=== PATIENT | female | born 1990 | race Caucasian/White ===

== ENCOUNTER 2020-06-23 18:23 | Observation (INO) | payer OTHER, SELFPAY ==
[2020-06-23] VITALS (33 sets, daily range): BP systolic 105–131; BP diastolic 56–75; PULSE 92–136; RESP 18; TEMP 36.6–36.8; O2SAT 98–100; BMI 27.7
--- NOTE | 2020-06-23 18:48 | OBADM ---
This patient, Elida Hamlin, admitted to the OB room [facility] for observation. Patient/family oriented to hospital policies and general routines including ID bracelet, bed and alarms, visiting hours, pain management, procedures, bathroom and other care routines, personal items, smoking policy, room service/diet, and visiting hours. Patient/Family are encouraged to report perceived risks to care and to ask questions if they do not understand what they are told or what they should do.
[2020-06-23] MEDS: TERBUTALINE SULFATE 1 MG/ML VIAL 0.25 MG SUB-Q (19:22)
[2020-06-23 19:49] LABS: Fetal Fibronectin Positive
[2020-06-23] MEDS: BETAMETHASONE SOD PHOS/ACETATE 30 MG/5 ML VIAL 12 MG IM (19:49)
[2020-06-23] MEDS: LACTATED RINGERS 1,000 ML 75 ML IV CONT (19:51)
[2020-06-23] MEDS: MAGNESIUM SULF 4 GM/WATER100ML 4 GM/100 ML BAG IVPB (19:52)
[2020-06-23] MEDS: AMPICILLIN 2 GM/NS 100 ML 2 GM/100 ML BAG IVPB (19:52)
[2020-06-23 19:59] LABS: Basophils Percent Auto 0.2 % (0.2-1.2); Eosinophils Absolute Auto 0.1 K/mm3 (0-0.3); Eosinophils Percent Auto 0.5 % (0-4.4); Hematocrit 31.3 % (37.0-47.0); Hemoglobin 9.8 g/dL (12.0-15.0); Immature Granulocyte Absolute 0.13 K/mm3 (0.00-0.031); Immature Granulocyte Percent A 1.2 % (0-0.5); Lymphocytes Absolute Auto 2.65 K/mm3 (0.9-3.2); Lymphocytes Percent Auto 24.3 % (18.3-44.2); Mean Corpuscular HGB Conc 31.3 g/dl (32-36); Mean Corpuscular Hemoglobin 27.4 pg (26-34); Mean Corpuscular Volume 87.4 fl (80-100); Mean Platelet Volume 10.2 fl (7.4-10.4); Monocytes Absolute Auto 0.8 K/mm3 (0.1-0.6); Monocytes Percent Auto 6.9 % (2.6-8.5); Neutrophils Absolute Auto 7.3 K/mm3 (1.3-6.7); Neutrophils Percent Auto 66.9 % (45.5-73.1); Platelet Count Result 328 k/mm3 (150-375); Red Blood Count 3.58 M/mm3 (4.2-5.4); Red Cell Distribution Width 17.4 % (11.5-14.5); White Blood Count 10.9 K/mm3 (4.5-10.0)
[2020-06-23 20:11] LABS: Alanine Aminotransferase 16 U/L (4-35); Albumin Level 3.4 g/dL (3.5-5.1); Alkaline Phosphatase 84 U/L (38-126); Anion Gap 6 mmol/L (8-16); Aspartate Amino Transferase 29 U/L (14-36); Bilirubin,Total < 0.1 mg/dL (0.2-1.3); Blood Urea Nitrogen 7 mg/dL (7-17); Calcium 8.8 mg/dL (8.4-10.2); Carbon Dioxide 23 mmol/L (22-30); Chloride 106 mmol/L (98-107); Estimated CRCL calculation 124 ml/min; Estimated Glomerular Filt Rate > 60; Glucose 92 mg/dL (65-105); Potassium 3.2 mmol/L (3.4-5.0); Sodium 135 mmol/L (137-145)
[2020-06-23] MEDS: MAGNESIUM SULF 20GM/WATER500ML 500 ML 50 MG IV CONT (20:29)
[2020-06-24] VITALS: BP 102/49; PULSE 101
[2020-06-24 00:01] VITALS: BP 102/49; PULSE 97; PULSE 99; RESP 18; TEMP 36.2; O2SAT 99
[2020-06-24] MEDS: AMPICILLIN 1 GM/NS 50 ML 1 GM/50 ML BAG IVPB ×2 (03:49)
--- NOTE | 2020-06-24 03:50 | PC.NURSE ---
Dr. Vivar at bedside to exam pt. SVE done. Assessment done.
[2020-06-24 04:01] VITALS: PULSE 96; RESP 18; TEMP 36.2; O2SAT 99
[2020-06-24 04:03] VITALS: BP 126/61; PULSE 93
--- NOTE | 2020-06-24 04:36 | PM.IMHP ---
H&P: HPI History of Present Illness Date/Time: 06/24/20 04:36 30 y/o at 30 2/7 weeks with di/di twins, here with contractions. No leakage of fluid or bleeding. Good movement. Chief Complaint: Contractions Review of Systems Review of Systems: All systems reviewed & are unremarkable except as noted in HPI and below PMFSH Social History Social History Smoking status: Former smoker Substance use: never Gender identity (if verbalized by the patient): Female Spiritual care concerns: No Meds Home Medications and Allergies Home Medications Medication Instructions Recorded Confirmed Type PNV cmb#95-ferrous fumarate-FA 1 tablet PO DAILY 02/14/19 06/23/20 History [] cholecalciferol (vitamin D3) 1,000 unit PO DAILY 02/14/19 06/23/20 History [Vitamin D3] Allergies Allergy/AdvReac Type Severity Reaction Status Date / Time Sulfa (Sulfonamide Allergy Unknown Verified 08/10/17 12:32 Antibiotics) Vital Signs Vital Signs - 24 hr 06/23/20 18:54 06/23/20 19:00 06/23/20 19:21 Temperature 36.6 C Pulse Rate 92 96 Respiratory Rate Blood Pressure 105/64 114/67 Pulse Oximetry 98 06/23/20 19:26 06/23/20 19:30 06/23/20 19:31 Temperature Pulse Rate 110 H Respiratory Rate Blood Pressure 131/75 Pulse Oximetry 99 100 06/23/20 19:36 06/23/20 19:41 06/23/20 19:46 Temperature Pulse Rate Respiratory Rate Blood Pressure Pulse Oximetry 99 100 100 06/23/20 19:51 06/23/20 19:52 06/23/20 19:56 Temperature 36.8 C Pulse Rate 111 H Respiratory Rate 18 Blood Pressure 126/67 Pulse Oximetry 100 99 99 06/23/20 20:00 06/23/20 20:01 06/23/20 20:11 Temperature Pulse Rate 114 H Respiratory Rate Blood Pressure 126/67 Pulse Oximetry 99 99 06/23/20 20:16 06/23/20 20:17 06/23/20 20:22 Temperature Pulse Rate Respiratory Rate Blood Pressure Pulse Oximetry 100 100 100 06/23/20 20:27 06/23/20 20:32 06/23/20 20:37 Temperature Pulse Rate Respiratory Rate Blood Pressure Pulse Oximetry 100 100 100 06/23/20 20:42 06/23/20 20:47 06/23/20 20:52 Temperature Pulse Rate Respiratory Rate Blood Pressure Pulse Oximetry 100 100 100 06/23/20 20:57 06/23/20 21:00 06/23/20 21:02 Temperature Pulse Rate 107 H Respiratory Rate Blood Pressure 114/62 Pulse Oximetry 100 100 06/23/20 21:07 06/23/20 21:12 06/23/20 21:17 Temperature Pulse Rate Respiratory Rate Blood Pressure Pulse Oximetry 100 100 100 06/23/20 22:01 06/23/20 23:00 06/23/20 23:56 Temperature Pulse Rate 105 H 104 H Respiratory Rate Blood Pressure 110/56 L 106/65 Pulse Oximetry 98 06/24/20 00:00 06/24/20 00:01 06/24/20 04:01 Temperature 36.2 C L 36.2 C L Pulse Rate 101 H 97 96 Respiratory Rate 18 18 Blood Pressure 102/49 L 102/49 L Pulse Oximetry 99 99 06/24/20 04:03 Temperature Pulse Rate 93 Respiratory Rate Blood Pressure 126/61 Pulse Oximetry Exam Const: Orientation/consciousness: patient oriented x3 Other: Well-developed, well-nourished female in no acute distress. Neck: Thyroid: thyroid normal Lymphatic: no lymphadenopathy noted (in neck, axilla or inguinal nodes) Resp: Effort & Inspection: normal respiratory effort Auscultation: clear to auscultation bilaterally Cardio: Rate: regular rate Rhythm: regular rhythm Heart sounds: S1 normal heart sound present and S2 normal heart sound present GI: Other: ABD: Soft, nontender, gravid. NST good variability x 2. TOCO: contractions every 2-3 min initially, now rare contractions. No hepatosplenomegaly. : General: Yes no CVA tenderness Other: Cervix 5/50/-2, vertex Back/Spine/Pelvis: Back: no CVA tenderness Skin: General skin exam: normal color and no rashes or lesions noted Neuro: General: patient oriented x3 Extrem: Other
--- NOTE | 2020-06-24 04:40 | PC.NURSE ---
gave report to Tamia ALDRICH from [facility]. will be on way for transport
--- NOTE | 2020-06-24 05:41 | PC.NURSE ---
transport team here. report to ca tejada
== END 2020-06-24 05:53 | disposition short-term general hospital (02) ==
LOC: ANHOBPP 18:30
PROVIDERS: Admitting Provider Obstetrics & Gynecology; Visit Provider Obstetrics & Gynecology
DX: O60.03 Preterm labor without delivery, third trimester (principal); O30.043 Twin pregnancy, dichorionic/diamniotic, third trimester; Z3A.30 30 weeks gestation of pregnancy
CPT/HCPCS: 36415; 80053; 82731; 85025; 96365; 96366; 96368; 96372; G0378; G0379; J0290; J0702; J3105; J3475; J7120

== ENCOUNTER 2023-10-04 10:43 | Emergency (ER) | payer BC, SELFPAY ==
[2023-10-04 10:54] VITALS: BP 105/67; PULSE 83; RESP 16; TEMP 36.5; O2SAT 100
--- NOTE | 2023-10-04 11:45 | ED.GENADULT ---
HPI - General Adult General Chief complaint: Skin/Abscess/Foreign Body Stated complaint: Poison Megan Source: patient Mode of arrival: ambulatory Limitations: no limitations History of Present Illness HPI narrative: Patient presents for evaluation of a pruritic rash to the face, neck, bilateral upper extremities for the last 4 days. She was exposed to poison megan when feeding her horses. She has experienced similar symptoms in the past when exposed to poison megan. She has been using nnth-rwq-occypdl topical product to assist with her itching with persistence of her symptoms thereafter. She denies any difficulty breathing or swallowing. Related Data Home Medications Medication Instructions Recorded Confirmed cholecalciferol (vitamin D3) 25 1,000 unit PO DAILY 02/14/19 06/23/20 mcg (1,000 unit) capsule (Vitamin D3) vit no.95-ferrous 1 tablet PO DAILY 02/14/19 06/23/20 fumarate 28 mg-folic acid 800 mcg tablet () Allergies Allergy/AdvReac Type Severity Reaction Status Date / Time Sulfa (Sulfonamide Allergy Unknown Verified 08/10/17 12:32 Antibiotics) Review of Systems Review of Systems: CONSTITUTIONAL: Denies fever, chills, or sweats. EYES: Denies visual changes, redness, or discharge. ENT: Denies rhinorrhea, congestion, sore throat, or otalgia. CARDIOVASCULAR: Denies chest pain, palpitations, or edema. RESPIRATORY: Denies cough or dyspnea. GASTROINTESTINAL: Denies abdominal pain, nausea, vomiting, or diarrhea. GENITOURINARY: Denies dysuria or hematuria. SKIN: Reports pruritic rash to the face, neck, and bilateral upper extremities MUSCULOSKELETAL: Denies back pain, joint pain, or myalgia. NEUROLOGIC: Denies headache, numbness, dizziness, or weakness. PSYCHIATRIC: Denies anxiety or depression. [facility], [facility] Past Medical History Medical History Vitamin D deficiency Surgical History Surgical History No pertinent past surgical history Family History Family History Mother Family history non-contributory Social History Social History Smoking status: Former smoker Substance use: never Living arrangements: with family Gender identity (if verbalized by the patient): Female Spiritual care concerns: No Exam Narrative: GENERAL: Well-appearing, well-nourished, and in no acute distress. HEAD: Normocephalic, atraumatic. EYES: PERRLA and EOMI. ENT: Nares clear, no rhinorrhea or epistaxis. Mucous membranes moist. Oropharynx without tonsillar hypertrophy exudate or other lesions. Bilateral TMs pearly brown nonbulging NECK: Supple. No adenopathy or masses. No carotid bruits or JVD CHEST: Clear to auscultation. No respiratory distress. No wheezes rales or rhonchi HEART: Regular rate and rhythm. No murmur heard. Normal peripheral pulses. ABDOMEN: Soft, nontender, nondistended, normal active bowel sounds. EXTREMITIES: Normal range of motion. No edema. SKIN: there are scattered macules and raised vesicular erythematous lesions to the forehead, right side of the neck in bilateral upper extremities NEURO: No focal deficits. Alert and oriented x3. PSYCH: Normal mood and affect. Course Course Emergency Course: This is a 33-year-old female who presented for evaluation of dermatitis secondary to poison megan exposure. Will treat with prednisone. Benadryl for itching. Advised on skin care measures. Follow up primary provider. Go to the ER for worsening symptoms. Patient in agreement with plan care. Level of Care: Express Care Visit Vital Signs Vital signs: Vital Signs Temperature 36.5 C 10/04/23 10:54 Pulse Rate 83 10/04/23 10:54 Respiratory Rate 16 10/04/23 10:54 Blood Pressure 105/67 10/04/23 10:54 Pulse Oximetry
== END 2023-10-04 11:52 | disposition home or self-care (01) ==
PROVIDERS: Emergency Provider Nurse Practitioner; PCP Internal Medicine
DX: L23.7 Allergic contact dermatitis due to plants, except food (principal); Z87.891 Personal history of nicotine dependence; E55.9 Vitamin D deficiency, unspecified
CPT/HCPCS: 99203; G0463

== ENCOUNTER 2024-01-27 12:28 | Emergency (ER) | payer BC, SELFPAY ==
[2024-01-27 12:40] VITALS: BP 100/74; PULSE 81; RESP 16; TEMP 36.6; O2SAT 100
--- NOTE | 2024-01-27 13:00 | ED_ITS ---
HPI - URI/Sore Throat General Chief Complaint: Upper Respiratory Infection Stated Complaint: Sinus congestion Time Seen by Provider: 01/27/24 13:00 Source: patient Mode of arrival: ambulatory Limitations: no limitations History of Present Illness HPI Narrative: 33-year-old female presents with complaint of nasal and sinus congestion, Postnasal drainage, sinus pressure, sinus headaches, intermittent sore throat fo r the past 10 days. Patient taking ibuprofen to treat pain. Not taking any emnd-nhi-zsmqtue sinus medications to treat symptoms. All systems reviewed and negative except as noted above. Related Data Home Medications Medication Instructions Recorded Confirmed cholecalciferol (vitamin D3) 25 1,000 unit PO DAILY 02/14/19 01/27/24 mcg (1,000 unit) capsule (Vitamin D3) progesterone micronized 100 mg 100 mg PO DAILY 01/27/24 01/27/24 capsule Allergies Allergy/AdvReac Type Severity Reaction Status Date / Time Sulfa (Sulfonamide Allergy Unknown Unknown Verified 01/27/24 12:57 Antibiotics) Review of Systems Review of Systems: CONSTITUTIONAL: Denies fever, chills, or sweats. EYES: Denies visual changes, redness, or discharge. ENT: Reports rhinorrhea, congestion, sore throat,, postnasal drainage, sinus pressure. Denies otalgia. CARDIOVASCULAR: Denies chest pain, palpitations, or edema. RESPIRATORY: Denies cough or dyspnea. GASTROINTESTINAL: Denies abdominal pain, nausea, vomiting, or diarrhea. GENITOURINARY: Denies dysuria or hematuria. SKIN: Denies rash or itching. MUSCULOSKELETAL: Denies back pain, joint pain, or myalgia. NEUROLOGIC: Denies headache, numbness, or weakness. PSYCHIATRIC: Denies anxiety or depression. All other systems reviewed are negative, except as documented in HPI. [facility] Past Medical History Medical History Vitamin D deficiency Surgical History Surgical History No pertinent past surgical history Family History Family History Mother Family history non-contributory Social History Social History Smoking status: Former smoker Substance use: never Living arrangements: with family Gender identity (if verbalized by the patient): Female Spiritual care concerns: No Comments At time of signature, agree with nursing past medical, surgical, social and family history. There is no relevant family history pertinent to the presenting complaint. Exam Narrative: GENERAL: This is a well-nourished, well-developed patient, in no apparent distress. HEAD: normocephalic, atraumatic. EYES: PERRL. Sclera clear/white. Vision is grossly intact. EARS: External ears normal, auditory canals clear and without drainage, TMs normal without perforation. Hearing grossly intact. NOSE: External nose normal with mild congestion, postnasal drainage, mild erythema, maxillary sinus tenderness on palpation THROAT: Mucous membranes moist, posterior pharynx clear. NECK: Neck supple, non-tender without lymphadenopathy, masses or thyromegaly. CARDIOVASCULAR: Regular rate and rhythm without murmurs, gallops, or rubs. RESPIRATORY: Clear to auscultation. Breath sounds equal bilaterally. No wheezes, rales, or rhonchi. SKIN: warm, Dry, intact with no suspicious lesions or rash, good texture and turgor. NEURO: awake, alert, and oriented to person, place and time. There were no obvious focal neurologic abnormalities. EXTREMITIES: No joint tenderness, effusion, or edema noted. Course Course Level of Care: Express Care Visit Vital Signs Vital signs: Vital Signs Temperature 36.6 C 01/27/24 12:40 Pulse Rate 81 01/27/24 12:40 Respiratory Rate 16 01/27/24 12:40 Blood Pressure 100/74 01/27/24 12:40 Pulse Oximetry 100 01/27/24 12:40 Temperature 36.6 C 01/27/24 12:40 Pulse Rate 81 01/27/24 12:40 Respiratory Rate 16 01/27/24 12:40 Blood Pressure 100/74 01/27/24 12:40 Pulse Oximetry 100 01/27/24 12:40 Reviewed MDM - URI/Sore Throat MDM Narrative Medical decision making narrative: Will treat patient for bacterial sinusitis due to exam findings and duration of symptoms. Patient is aware of diagnosis, understands and agrees to treatment plan. Anticipatory guidance given. Patient agrees to follow-up as directed and is aware of reasons to seek care at the emergency department. Portions of this record may have been created with voice recognition software Differential Diagnosis Differential diagnosis: Likely sinusitis Discharge Plan Discharge Clinical Impression: Acute bacterial sinusitis Patient Disposition: Home, Self-Care Condition: Stable Instructions: Antibiotic Form, Sinusitis (ED) Additional Instructions: Take antibiotic as prescribed until gone. Taking exgw-cxl-[id number] antihistamine such as Claritin or Zyrtec. Using nasal spray daily such as Flonase or Nasacort. Continue to take ibuprofen or Tylenol every 6-8 hours as needed for pain. Drink at least 64 oz of water a day. Follow-up with your primary care physician if symptoms are not improving. Prescriptions: New amoxicillin 875 mg tablet 875 mg PO Q12H 10 Days Qty: 20 0RF No Action progesterone micronized 100 mg capsule 100 mg PO DAILY cholecalciferol (vitamin D3) [Vitamin D3] 1,000 unit Capsule 1,000 unit PO DAILY Follow-up/Referrals: Vandana,MD Suhail [Primary Care Provider] - Time of Disposition: 13:06
== END 2024-01-27 13:10 | disposition home or self-care (01) ==
PROVIDERS: Emergency Provider Nurse Practitioner Family; PCP Internal Medicine
DX: J01.90 Acute sinusitis, unspecified (principal); E55.9 Vitamin D deficiency, unspecified
CPT/HCPCS: 99213; G0463

== ENCOUNTER 2024-09-13 15:55 | Outpatient (CLI) | payer BC, SELFPAY ==
--- NOTE | ~2024-09-13 | MR_ITS ---
MRI of the right wrist Technique: Coronal T1 weighted and proton density fat sat images, and axial and sagittal proton-densi ty and proton-density fat-sat images were acquired. Following intravenous administration of 10 cc Mul tiHance gadolinium, T1-weighted fat-sat imaging was performed in the axial, coronal, and sagittal nadira racheal. Clinical History: Volar mass Findings: Scapholunate ligament is intact, and there is no widening of the scapholunate interval. Mariel otriquetral ligament intact. TFCC appears intact. Bone marrow signals are unremarkable. No fracture or bone marrow edema. Joint spaces are intact. Ther e is a 1.5 x 0.9 x 0.7 cm ganglion cyst with a few internal septations at the volar aspect of the dis ignacia radius at the radial aspect, connected by thin neck of fluid which appears to extend from the rad ial scaphoid articulation. No associated postcontrast enhancement lesion, which is compatible with a ganglion cyst. No other soft tissue mass or fluid collection seen. Visualized musculature unremarkable. Visualized flexor and extensor tendons are intact. IMPRESSION: 1.5 x 0.9 x 0.7 cm ganglion cyst along the radial, volar aspect of the radial scaphoid articulation, connected by a thin neck of fluid extending from the radial scaphoid joint. Reviewed, dictated and finalized at location M. IMPRESSION: 1.5 x 0.9 x 0.7 cm ganglion cyst along the radial, volar aspect of the radial s caphoid articulation, connected by a thin neck of fluid extending from the radi al scaphoid joint.
== END 2024-09-13 15:56 | disposition home or self-care (01) ==
LOC: MICIMG 15:59
PROVIDERS: PCP Internal Medicine; Visit Provider Plastic Surgery
DX: M67.431 Ganglion, right wrist (principal)
CPT/HCPCS: 73223; A9577

== ENCOUNTER 2024-09-28 00:21 | Day surgery (SDC) | payer BC, SELFPAY ==
[2024-09-26 09:47] VITALS: BMI 19.3
--- NOTE | 2024-09-26 09:48 | PC.NURSE ---
Report to the Outpatient Waiting Room, entrance under the green pavilion located off [facility], at time _1045_ on date _[id number]_. Planned Procedure Time: _1245_.? Time changes happen often and if your time is changed the preop area will call you the afternoon before. - You and your visitor will be asked to self-screen and do not enter if you have any COVID symptoms. Please call surgeon if you need to reschedule. - A mask is optional within the hospital at this time. Patients may have clear liquids (water, carbonated beverages, clear teas, apple juice) until 3 hours prior to surgery with a maximum of 20 ounces. - No food from midnight until time of surgery and no smoking, or chewing tobacco (or any form of nicotine). No chewing gum, candy or mints. Take only the following medications with a SIP of water on the morning of surgery: ___None____ DO NOT STOP ANY OF YOUR OTHER PRESCRIPTION MEDICATIONS PRIOR TO SURGERY EXCEPT THE FOLLOWING Hold all vitamins and supplements for 3 days per anesthesiologist. Stop now. Medications to discontinue per physician Date to take last dose Please no make-up, nail sudanese, hairspray, perfume, deodorant, or body powder the day of surgery.? No jewelry (including any body piercings) or valuables the day of surgery, leave them at home.? Please take a shower or bath the night before, or the morning of, surgery with an antibacterial soap.? Wear comfortable, loose fitting clothing.? - Jewelry must be removed prior to entering the operating room.? Rings and piercings that are not removed may be cut off. - The hospital will not accept responsibility for valuables.? - Please leave all valuables, including medications, at home the day of surgery. If you are going home after surgery, a licensed wheelchair van driver must drive you home.? - NO public transportation without another adult if you receive anesthesia. - We recommend that an adult stay with you for 24 hours following discharge. - We also recommend that you do not drive, make important decision, drink alcoholic beverages, or take any drugs that were not prescribed by your health care provider for at least 24 hours after your discharge time. Follow any additional instructions given to you from your surgeon. Telephone instructions given to __Elida___and asked if any additional questions and then verbalized understanding. Patient advised to call surgeon office or pre surgery nurse liaison [phone] if any additional questions.
--- NOTE | 2024-09-26 09:54 | PC.NURSE ---
Report to the Outpatient Waiting Room, entrance under the green pavilion located off [facility], at time _1045_ on date _[id number]_. Planned Procedure Time: _1245_.? Time changes happen often and if your time is changed the preop area will call you the afternoon before. - You and your visitor will be asked to self-screen and do not enter if you have any COVID symptoms. Please call surgeon if you need to reschedule. - A mask is optional within the hospital at this time. May have clear liquids (water, carbonated beverages, clear teas, apple juice) until 445am with a maximum of 20 ounces. Nothing to drink after 445am. - No food from midnight until time of surgery and no smoking, or chewing tobacco (or any form of nicotine). No chewing gum, candy or mints. Take only the following medications with a SIP of water on the morning of surgery: ____None___ DO NOT STOP ANY OF YOUR OTHER PRESCRIPTION MEDICATIONS PRIOR TO SURGERY EXCEPT THE FOLLOWING Hold all vitamins and supplements for 3 days per anesthesiologist. Stop now. Medications to discontinue per physician Date to take last dose Please no make-up, nail portuguese, hairspray, perfume, deodorant, or body powder the day of surgery.? No jewelry (including any body piercings) or valuables the day of surgery, leave them at home.? Please take a shower or bath the night before, or the morning of, surgery with an antibacterial soap.? Wear comfortable, loose fitting clothing.? - Jewelry must be removed prior to entering the operating room.? Rings and piercings that are not removed may be cut off. - The hospital will not accept responsibility for valuables.? - Please leave all valuables, including medications, at home the day of surgery. If you are going home after surgery, a licensed milk driver must drive you home.? - NO public transportation without another adult if you receive anesthesia. - We recommend that an adult stay with you for 24 hours following discharge. - We also recommend that you do not drive, make important decision, drink alcoholic beverages, or take any drugs that were not prescribed by your health care provider for at least 24 hours after your discharge time. Follow any additional instructions given to you from your surgeon. Telephone instructions given to __Elida___and asked if any additional questions and then verbalized understanding. Patient advised to call surgeon office or pre surgery nurse liaison [phone] if any additional questions.
--- OUTSIDE RECORDS SUMMARY | 2024-09-28 00:24 | XMS_ITS | Encounter Summary ---
Author Organization [facility] Address [address] [place] [address] Care Team Providers Care Crtts Name Role Phone Suhail Ross MD Primary Care Provider [phone] Encounter Details Date Type Department Care Team (Latest Contact Info) Description 02/10/2023 [email or web address] Message Enc [facility] Multispecialty Care - [address] [address] [address] [place], [place] [id number] Suhail Ross MD [address] [place] [address] [address] [place] [address] June 2022 Pap results Social History Tobacco Use Types Packs/Day Years Used Date Smoking Tobacco: Former Cigarettes 0.5 5 0 11/29/2007 - 11/28/2012 Passive Smoke Exposure: Never Smokeless Tobacco: Never Comments:Counseled by Dr Abbi alvarez Alcohol Use Standard Drinks/Week Comments Yes 5 (1 standard drink = 0.6 oz pur e alcohol) PHQ-2 Answer Date Recorded Patient Health Questionnaire-2 Score 0 02/10/2023 Comments No Sex and Gender Information Value Date Recorded Sex Assigned at Not on file Legal Sex Female 12:45 PM CDT Gender Identity Not on file Sexual Orientation Not on file documented as of this encounter Functional Status * Over the past 2 weeks, how often have you been bothered by any of the following problems? Question Answer Date of Assessment Author Status Little interest or pleasure in doing things Not at all 02/10/2023 10:59 AM Simona Duggan MA Acti ve Feeling down, depressed, or hopeless Not at all 02/10/2023 10:59 AM Simona Duggan MA Active Patient Health Questionnaire-2 Score 0 02/10/2023 10:59 AM Simona Duggan M A Active * Question Answer Date of Assessment Author Status Trouble falling or staying asleep, or sleeping too much Not at all 02/10/2023 10:59 AM Simona Duggan MA Active Feeling tired or having little energy Several days 02/10/2023 10:59 AM Simona Duggan MA Active Poor appetite or overeating Not at all 02/10/2023 10:59 AM Simona Duggan MA Active Feeling bad about yourself - or that you are a failure or have let yourself or your family down Several days 02/10/2023 10:59 AM Simona Duggan MA Active Trouble concentrating on things, such as reading the newspaper or watching television Several days 02/10/2023 10:59 AM Simona Duggan MA Active Moving or speaking so slowly that other people could have noticed? Or the opposite - being so fidgety or restless that you have been moving around a lot more than usual. Several days 02/10/2023 10:59 AM Simona Duggan MA Active Thoughts that you would be better off or hurting yourself in some way Not at all 02/10/2023 10:59 AM Simona Duggan MA Active Patient Health Questionnaire-9 Score 4 02/10/2023 10:59 AM Simona Duggan MA Active * Calculated C-SSRS Risk Score (Lifetime/Recent) Answer Date of Assessment Author Status No Risk Indicated 02/10/2023 10:44 AM Suhail Edgar MD Active * If you checked off any problems on this questionnaire so far, Question Answer Date of Assessment Author Status How difficult have these problems made it for you to do your work, take care of things at home, or get along with other people? Somewhat difficult 02/10/2023 10:59 AM Simona Duggan MA Active * Over the last 2 weeks, how often have you been bothered by any of the following problems? Question Answer Date of Assessment Author Status Feeling nervous, anxious, or on edge 2 02/10/2023 11:00 AM Simona Duggan MA Acti ve Not being able to stop or control worrying 2 02/10/2023 11:00 AM Simona Duggan MA Act audie Worrying too much about different things 2 02/10/2023 11:00 AM Simona Duggan MA Act audie Trouble relaxing 2 02/10/2023 11:00 AM Simona Duggan MA Active Being so restless that it is hard to sit still 2 02/10/2023 11:00 AM Simona Duggan MA Active Becoming easily annoyed or irritable 2 02/10/2023 11:00 AM Simona Duggan MA Acti ve Feeling afraid as if something awful might happen 2 02/10/2023 11:00 AM Simona Duggan MA Acti ve [id number] Total Score 14 02/10/2023 11:00 AM MEDICAL ADMINISTRATIVE ASSISTANT Simona Burton MA Active * Norris Suicide Severity Rating Scale (Screener/Recent Self-Report) Question Answer Date of Assessment Author Status 1. Wish to be (Past 1 Month) No 02/10/2023 10:44 AM Suhail Edgar MD Active 2. Non-Specific Active Suicidal Thoughts (Past 1 Month) No 02/10/2023 10:44 AM Suhail Edgar MD Active 6. Suicidal Behavior (Lifetime) No 02/10/2023 10:44 AM Suhail Edgar MD Active documented as of this encounter Plan of Treatment Upcoming Encounters Date Type Department Care Team (Late st Contact Info) Description 04/21/2025 8:20 AM MEDICAL ADMINISTRATIVE ASSISTANT Office Visit [facility] Multispecialty Care [place] [address] [address] [address] [place] [address] Suhail Ross MD [address] [place] [address] [address] [place] [address] documented as of this encounter Visit Diagnoses Not on filedocumented in this encounter Additional Health Concerns Assessment Noted Time PHQ-9 Depression Total Score: 4 02/11/20 10:59 AM MEDICAL ADMINISTRATIVE ASSISTANT documented as of this encounter Care Teams Crtts Relationship Specialty Start Date End Date Suhail Ross MD [address] [address] PCP - General INTERNAL MEDICINE 12/10/21 documented as of this encounter
--- OUTSIDE RECORDS SUMMARY | 2024-09-28 00:24 | XMS_ITS | Clinical Summary ---
Author Organization [email or web address] Address [address] [place] [address] Care Team Providers Care Traffic Manager Name Role Phone Unavailable Primary Care Provider Unavailabl e Source Comments [email or web address],non-owned Affiliates and Associated Physician Practices is amultiple site organization consisting of ambulatory clinics and hospital sitesin [place], [place], [place]. This disclosure is being madepursuant to the Care Everywhere program and may not contain all information available regarding this patient. Last updated 17.[email or web address] Allergies Active Allergy Reactions Criticality Noted Date Comments Sulfa Drugs Urticaria Medium 09/03/2016 Medications * Be aware that medications may not be up to date on this document. Alwaysverify current medications with the patient. Vit-Fe Fumarate-FA ( 19 PO) Active ferrous sulfate 325 (65 FE) MG tablet Take 325 mg by mouth once daily Active docusate sodium (COLACE) 100 MG capsule Take 1 (one) capsule by mouth once daily 30 capsule 3 08/19/2020 Active plus iron (NATATAB) 29-1 MG tablet Take 1 (one) tablet by mouth once daily 90 tablet 4 08/19/2020 Active ferrous sulfate 325 (65 FE) MG tablet Take 1 (one) tablet by mouth once daily 30 tablet 3 08/19/2020 Active acetaminophen (TYLENOL) 500 MG capsule Take 2 (two) capsules by mouth every 6 hours as needed for Fever or Pain 56 capsule 08/19/2020 Active Active Problems Problem Noted Date Diagnosed Date Encounter for induction of labor 08/17/2020 High-risk 07/21/2020 Overview (07/21/2020): Blood type: AB+ Ab neg Rubella: immune Hep B surface antigen:non-reactive Treponema pallidum antibody: non-reactive HIV:Negative HCV: not found GCT: 113 GBS: BP at 10 weeks 129/86 Iron deficiency anemia during 07/22/19 Overview (07/21/2020): Venofer 900 mg received in hospital Premature dilatation of cervix during 07/21/2020 Overview (07/21/2020): SVE 3-4/50/-3, soft multiparous cervix on 07/03, down from 5 cm on admission Had ANCS 06/23- Assessment & Plan (08/02/2020 2:02 PM CDT): Last EFW 2400+ grams for both twins on 07/27/20. Today vtx/vtx No indication for serial testing labor precautions GBS current & negative IOL at 38 weeks booked Reassess growth in 2 weeks GBS carrier 06/24/2020 Overview (06/24/2020): GBS+ in G1-G3 Dichorionic diamniotic twin , antepartu m Overview (07/21/2020): 19th percentile, 57th percentile on 06/25, 13% weight difference Both cephalic 07/17 Threatened labor, antepartum Resolved Problems Problem Noted Date Diagnosed Date Resolved Date Hypokalemia 06/24/2020 07/21/2020 in person acting a s gestational surrogate 03/30/2018 01/20/2019 affected by growth restriction 03/30/2018 06/24/2020 Assessment & Plan (02/23/2019 1:37 PM SNORKELLING INSTRUCTOR): abdominal circumference less than 10th percentile again. No abnormal biophysical profile result, no oligohydramnios nor any remarkable Doppler pattern. I had a long discussion with the biological mother of this fetus [Nikaline] regarding the results. She expressed a lot of anxiety as she questions if the baby had signs of dwarfism, as on the last exam the femur length was short. She also questions whether or not there was microcephaly. I made multiple attempts to reassure Sharon that the growth pattern was not consistent with skeletal dysplasia/dwarfism but most likely this child would be shorter because she herself is short. Sharon admitted that after our discussions she goes online and starts looking up some of the measurements and then makes herself more scared based on what she is reading. Sharon told me that she thought head circumference measurement less than the 3rd percentile meant that her baby had microcephaly. I corrected her that the diagnosis of microcephaly is made by standard deviation from the mean rather than percentiles and that her baby has never had a head circumference in the range of microcephaly. This fetus has had adequate supervision for growth restriction. I emphasized that I do not believe that delivery prior to the 39th week is warranted unless new developments arise. We also discussed her level and anxiety and I asked if she was speaking with a mental health counselor. I expressed my concern about how significantly distressed she gets by things that are not significantly concerning. Sharon voiced that she believes that once the child is born and living with her in [place] that her problems will resolve because she has OCD and feels like she cannot control this current situation. We discussed that it is possible that her anxiety may not resolve immediately after delivery and I encouraged her to get Mental Health support. [facility] recommendations: daily kick counts Preeclampsia precautions reviewed with Elida delivery initiation in the 39th week Assessment & Plan (02/09/2019 11:27 AM SNORKELLING INSTRUCTOR): No suggestion of congenital infection by screening of surrogate TORCH serologies. Abdominal circumference measuring at the 12 percentile. NO abnormal Doppler study pattern to date. Reassuring biophysical profile. Sharon was very reassured at the news! Recommend continuing weekly biophysical profile and Doppler study Reassess growth in two weeks No current indication for delivery prior to 39 weeks No contraindication to delivery at the hospital of the patient's choosing Assessment & Plan (01/20/2019 7:09 PM CDT): Family history to the fetus includes previous growth restriction. Placental pathology reviewed from that with features of maternal vascular under perfusion. Surrogate with exposure to cats. No anomalies demonstrated by ultrasound today. TORCH screening requested Recommend weekly 10 point biophysical profile and Doppler study --can be performed at the [facility] Emphasized the importance of daily kick counts Currently recommend delivery initiation in the 39th week unless earlier delivery is indicated by :non-reassuring testing, abnormal Doppler patterns, oligohydramnios [MVP< 2 cm] or decreased movement Low back pain during 03/30/2018 06/24/2020 Overview (01/12/2019): Dr Vivar referred to [facility] PT Assessment & Plan (02/09/2019 11:25 AM SNORKELLING INSTRUCTOR): Elida reports improvement today Anemia affecting , antepartum 03/30/2018 06/24/2020 Overview (01/20/2019): finished course po iron RX Dr Vivar Immunizations Immunization Administration Dates Next Due INFLUENZA VACCINE, QUADR. (F LUZONE; FLULAVAL; FLUARIX; AFLURIA QUADRIVALENT; 6MO+), 0.5 ML (IIV4) 12/14/2018 MMR 08/18/2020(Deferred: See Comment s) TDAP (7yrs+) 08/18/2020(Deferred: See Comments),07/11/2020,12/29/2018 Family History Medical History Relation Name Comments Cancer - Uterine Maternal Aunt age 50s, u nknown genetic testing Cancer - Colon Maternal Grandparent Cancer - Breast Neg Hx Cancer - Ovarian Neg Hx Other - Defects Neg Hx Phlebitis/Blood Clot Neg Hx Relation Name Status Comments Father Alive Maternal Aunt Alive Maternal Grandparent Mother Alive Social History Tobacco Use Types Packs/Day Years Used Date Smoking Tobacco: Former Cigarettes Smokeless Tobacco: Never Comments:quit 2012 Alcohol Use Standard Drinks/Week Comments Not Currently 0 (1 standard drink = 0.6 oz pur e alcohol) not during Overall Financial Resource Strain (CARDIA) Answe r Date Recorded Difficulty of Paying Living Expenses Not hard at all 01/20/2019 Hunger Vital Sign Answer Date Recorded Worried About Running Out of Food in the Last Ye ar Never true 01/20/2019 Ran Out of Food in the Last Year Never true 01/20/2019 PRAPARE - Transportation Answer Date Re corded Lack of Transportation (Medical) No 01/20/2019 Lack of Transportation (Non-Medical) No 01/20/2019 Education Answer Date Recorded What is the highest level of school you have completed or the highest degree you have received? 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 Not on file Not on file Last Filed Vital Signs Vital Sign Reading Time Taken Comments Blood Pressure 104/81 08/19/2020 8:40 AM CDT Pulse 75 08/19/2020 8:40 AM CDT Temperature 36.6 C (97.8 F) 08/19/2020 8:40 AM CDT Respiratory Rate 16 08/19/2020 8:40 AM CDT Oxygen Saturation 99% 08/19/2020 8:40 AM CDT Inhaled Oxygen Concentration - - Weight 83.9 kg (185 lb) 08/17/2020 11:06 AM CDT Height 167.6 cm (5' 6) 08/17/2020 11:06 AM CDT Body Mass Index 29.86 08/17/2020 11:06 AM CDT Plan of Treatment Health Maintenance Due Date Last Done Comments HIV SCREENING 2006 HEPATITIS C SCREENING 05/15/2009 HEPATITIS B VACCINE (1 of 3 - 19+ 3-dose series) 2010 COVID-19 VACCINE (2023-2 5 season) 2023 DEPRESSION SCREENING 03/30/2024 INFLUENZA VACCINE (Season Ended) 2024 12/14/2018 DTAP/TDAP/TD VACCINES (3 - T d or Tdap) 07/11/2030 07/11/2020, 12/29/2018 ZOSTER VACCINE (1 of 2) 2041 HIB VACCINE Aged Out No longer eligi ble based on patient's age to complete this topic HPV VACCINE Aged Out No longer eligi ble based on patient's age to complete this topic MENINGOCOCCAL (Group B) VACCINE SHARED DECISION-MAKING Aged Out No longer eligible based on patient's age to complete this topic MENINGOCOCCAL GROUPS A/C/Y/W VACCINE Aged Out No longer eligible b ased on patient's age to complete this topic PNEUMOCOCCAL VACCINE Aged Out No long er eligible based on patient's age to complete this topic Insurance AETNA AETNA Advance Directives * Full Code (Latest Code Status on File) Date Activated Date Inactivated Comments 08/17/2020 11:19 AM 08/19/2020 2:40 PM * Full Code Date Activated Date Inactivated Comments 07/27/2020 6:06 PM 07/30/2020 7:29 PM * Full Code Date Activated Date Inactivated Comments 07/27/2020 5:52 PM 07/27/2020 6:06 PM * Full Code Date Activated Date Inactivated Comments 07/27/2020 4:45 PM 07/27/2020 5:52 PM * Full Code Date Activated Date Inactivated Comments 06/26/2020 2:35 PM 07/04/2020 4:41 PM
--- OUTSIDE RECORDS SUMMARY | 2024-09-28 00:24 | XMS_ITS | Clinical Summary ---
Author Organization [facility] [address] Address [address] [place] [id number] Care Team Providers Care Cloud Operations Engineer Name Role Phone Suhail Ross MD Primary Care Provider [phone] Gregory Vivar MD Unavailable [phone] Allergies Active Allergy Reactions Criticality Noted Date Comments Sulfa (Sulfonamide Antibiotics) Hives Medium 08/29 Medications prenat.vits,erica ,ugs-xhxh-cpmnf tablet Take by mouth Active citalopram (CeleXA) 20 mg tablet Take 0.5 tablets (10 mg total) by mouth daily 15 tablet 1 02/04/2024 Active Active Problems Problem Noted Date Diagnosed Date Encounter for fertility testing 01/29/2023 Screening examination for rubella 01/29/2023 Screening for thyroid disorder 01/29/2023 Family History Medical History Relation Name Comments Colon cancer Other Relation Name Status Comments Other Social History Tobacco Use Types Packs/Day Years Used Date Smoking Tobacco: Former Cigarettes Q uit: 2013 Smokeless Tobacco: Never Tobacco Cessation:Counseling Given: Not Answered AUDIT-C Answer Date Recorded Q1: How often do you have a drink containing alc ohol? 2-3 times a week 01/24/2023 Q2: How many drinks containi ng alcohol do you have on a typical day when you are drinking? 1 or 2 01/24/2023 Q3: How often do you have si x or more drinks on one occasion? Never 01/24/2023 PHQ-2 Answer Date Recorded PHQ-2 Total Score (If total score is 3 or more points, staff should administer the PHQ-9) 0 09/24/2021 Personal Safety Answer Date Recorded Getting School Help Needed Not on file 04/03 Comments No Sex and Gender Information Value Date Recorded Sex Assigned at Not on file Legal Sex Female 5:04 PM CDT Gender Identity Not on file Sexual Orientation Not on file Obstetrics History Para Term AB IAB SAB Ectopic Multiple Livin g Live Births 4 4 4 1 5 5 Date Outcome GA Total Labor Labor/2nd/3rd Weight Sex Type Anes PTL Lorie A1 A5 Name Clin 016 Term Vagina l Livin g 018 Term Vagina l Livin g 019 Term Vagina l Livin g Comments:IVF Transfer 021 Term M Vagina l Y Livin g Complications:Twin 021 Term M Vagina l Y Livin g Comments 2019 carrier (FET with one e mbryo); uncomplicated G1-2; no complications G4: twin di/di (PTD at 29 weeks) hospitalized on occasion; delivered at 38 weeks. Last Filed Vital Signs Vital Sign Reading Time Taken Comments Blood Pressure 109/71 09/24/2021 8:38 AM CDT Pulse 60 09/24/2021 8:38 AM CDT Temperature 36.4 C (97.5 F) 09/24/2021 8:38 AM CDT Respiratory Rate 16 09/24/2021 8:38 AM CDT Oxygen Saturation 100% 09/24/2021 8:38 AM CDT Inhaled Oxygen Concentration - - Weight 55.3 kg (122 lb) 01/24/2023 10:04 AM CDT Height 167.6 cm (5' 6) 01/24/2023 10:04 AM CDT Body Mass Index 19.69 01/24/2023 10:04 AM CDT Plan of Treatment Health Maintenance Due Date Last Done Comments Cervical Cancer Screening 1991 Hepatitis C Screening 1991 Varicella Vaccines (1 of 2 - 13+ 2-dose series) 2004 Hepatitis B Screening 2009 Regular Well Visit/Exam 18-64 2009 Depression Screening 09/24/2022 09/24/2021 Influenza Vaccine (Season Ended) 2024 12/14/2018, 12/14/2018 DTaP/Tdap/Td Vaccine (3 - Td or Tdap) 07/11/2030 07/11/2020, 12/29/2018 HPV Vaccines Aged Out No longer eligi ble based on patient's age to complete this topic Pneumococcal vaccine <65 Aged Out No longer eligible based on patient's age to complete this topic [facility] [place] Care Teams Cloud Operations Engineer Relationship Specialty Start Date End Date Suhail Ross MD [address] [place], [place] [id number] PCP - General Internal Medicine 01/24/23 Gregory Vivar MD [address] [facility] [address] [place] [address] Referring Physician Obstetrics and Gynecology 01/24/23
--- OUTSIDE RECORDS SUMMARY | 2024-09-28 00:24 | XMS_ITS | Referral Summary ---
Author Organization [facility] [address] Address [address] [place] [id number] Care Team Providers Care Insurance Adviser Name Role Phone Suhail Ross MD Primary Care Provider [phone] Gregory Vivar MD Unavailable [phone] Allergies Active Allergy Reactions Criticality Noted Date Comments Sulfa (Sulfonamide Antibiotics) Hives Medium 08/29 Medications prenat.vits,erica ,had-ovip-uebbb tablet Take by mouth Active citalopram (CeleXA) 20 mg tablet Take 0.5 tablets (10 mg total) by mouth daily 15 tablet 1 02/04/2024 Active Active Problems Problem Noted Date Diagnosed Date Encounter for fertility testing 01/29/2023 Screening examination for rubella 01/29/2023 Screening for thyroid disorder 01/29/2023 Social History Tobacco Use Types Packs/Day Years [...] on file Sexual Orientation Not on file Last Filed Vital Signs [...] 01/24/2023 10:04 AM CDT Plan of Treatment Not on file Insurance AETNA [facility] HMO [facility] PPO [place] Care Teams Insurance Adviser Relationship Specialty Start Date End Date Suhail Ross MD [address] [place] [address] PCP - General Internal Medicine 01/24/23 Gregory Vivar MD [address] [facility] [address] [place] [address] Referring Physician Obstetrics and Gynecology 01/24/23
--- OUTSIDE RECORDS SUMMARY | 2024-09-28 00:24 | XMS_ITS | Encounter Summary ---
Author Organization [facility] Address [address] [place] [address] Care Team Providers Care Senior Project Engineer Name Role Phone Unavailable Primary Care Provider Unavailabl e Encounter Details Date Type Department Care Team (Late st Contact Info) Description 07/02/2020 Pharmacist Telephone/Documentatio n [facility] [address] [place], [place] [id number] Keyanna Smith, heavy machinery assembler Social History Tobacco Use Types Packs/Day Years [...] degree (e.g., BA, AB, BS) 01/20/2019 Comments Yes Sex and Gender Information Value Date Recorded Sex Assigned at Not on file Legal Sex Female 2:28 AM CDT Gender Identity Not on file Sexual Orientation Not on file 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 Answer Date of Assessment Author No 06/24/2020 7:32 AM Yung Blackman RN * Is person blind or have serious difficulty seeing? Answer Date of Assessment Author No 06/24/2020 7:32 AM Yung Blackman RN * Does person have serious difficulty walking/climbing stairs? Answer Date of Assessment Author No 06/24/2020 7:32 AM Yung Blackman RN * Does person have difficulty dressing/bathing? Answer Date of Assessment Author No 06/24/2020 7:32 AM Yung Blackman RN * Does person have difficulty doing errands alone? Answer Date of Assessment Author No 06/24/2020 7:32 AM Yung Blackman RN documented as of this encounter Mental Status * Does person have difficulty concentrating/remembering/making decisions? Answer Entry Date Author No 06/24/2020 7:32 AM Yung Blackman RN documented in this encounter Miscellaneous Notes * Telephone Encounter - Keyanna Brownlee CPhT - 07/02/2020 10:07 AM CDT This patient would like to have any discharge medications filled and delivered to their room prior to discharge. Please send prescriptions to [facility] or Fax ([phone]) This patient has been added to the Bedside Delivery Patients list. Please access this list for communications regarding the status of the prescriptions. Please call [phone] with any questions. documented in this encounter Plan of Treatment Not on file documented as of this encounter Visit Diagnoses Not on filedocumented in this encounter
--- OUTSIDE RECORDS SUMMARY | 2024-09-28 00:24 | XMS_ITS | Clinical Summary ---
Author Organization [facility] Address [address] [place] [id number] Care Team Providers Care Bucket Hooker Name Role Phone Suhail Ross MD Primary Care Provider [phone] Allergies Active Allergy Reactions Criticality Noted Date Comments Sulfa Antibiotics Hives Medium 09/03/2016 Medications Vitamin D3 125 mcg Tab Take 40 tablets (5,000 mcg total) by mouth daily. Active Probiotic Product (PROBIOTIC ADVANCED) Cap Active Krill Oil 1000 MG Cap Active Testosterone Cypionate 200 MG/ML Solution 02/12/2024 Acti ve cyanocobalamin (B-12) 1000 MCG/ML injection Inject 1 mL (1,000 mcg total) into the muscle every 30 (thirty) days. Active Active Problems Problem Noted Date Diagnosed Date Anxiety 02/10/2023 Overview (02/10/2023): Anemia 02/10/2023 Overview (02/10/2023): During Encounters Date Type Department Care Team Description 09/13/2024 Scan [facility] Scanned, [facility] MRI (SCAN) from Last 3 Months Immunizations Immunization Administration Dates Next Due Influenza Adult (Generic) 12/14/2018 Tdap (Generic) 07/11/2020,12/29/2018 Family History Medical History Relation Comments Cancer Maternal Aunt Uterine cancer Cancer Maternal Grandfather Colon/prost ate cancer Relation Status Comments Maternal Aunt Maternal Grandfather Social History Tobacco Use Types Packs/Day Years Used Date Smoking Tobacco: Former Cigarettes 0.5 5 0 11/29/2007 - 11/28/2012 Passive Smoke Exposure: Never Smokeless Tobacco: Never Tobacco Cessation:Counseling Given: Yes Comments:Counseled by Dr Ross Alcohol Use Standard Drinks/Week Comments Yes 5 (1 standard drink = 0.6 oz pur e alcohol) PHQ-2 Answer Date Recorded Patient Health Questionnaire-2 Score 0 04/19/2024 Comments No Sex and Gender Information Value Date Recorded Sex Assigned at Not on file Legal Sex Female 12:45 PM CDT Gender Identity Not on file Sexual Orientation Not on file Last Filed Vital Signs Vital Sign Reading Time Taken Comments Blood Pressure 103/68 04/19/2024 8:22 AM [employer] Pulse 67 04/19/2024 8:22 AM [employer] Temperature 36.4 C (97.5 F) 04/19/2024 8:22 AM [employer] Respiratory Rate 18 04/19/2024 8:22 AM [employer] Oxygen Saturation 100% 04/19/2024 8:22 AM [employer] Inhaled Oxygen Concentration - - Weight 56.2 kg (123 lb 12.8 oz) 04/19/2024 8:22 AM [employer] Height 167.6 cm (5' 6) 04/19/2024 8:22 AM [employer] Body Mass Index 19.98 04/19/2024 8:22 AM [employer] Plan of Treatment Upcoming Encounters Date Type Department Care Team (Late st Contact Info) Description 04/21/2025 8:20 AM [employer] Office Visit [facility] [place] [address] [address] [place] [address] Suhail Ross MD [address] [place] [id number] Health Maintenance Due Date Last Done Comments Cervical Cancer Screening Pa p Smear (Age 30 to 64) Every 3 Years 1991 Hepatitis B Vaccines (1 of 3 - 19+ 3-dose series) 2010 Annual Physical 04/19/2025 04/19/2024, 02/10/2023, 12/10/2021 COVID-19 Vaccine (2023-2 5 season) 2025 Postponed from 11/28 (Patient Refused) Cervical Cancer Screening Pa p with HPV Testing (Age 30 to 64) Every 5 Years 07/08/2027 07/07/2022, 07/01/2021 Cervical Cancer Screening with HPV 07/08/2027 DTaP, Tdap and Td Vaccines ( 3 - Td or Tdap) 07/11/2030 07/11/2020, 12/29/2018 Hepatitis C Completed 12/10/2021 PHQ-2 (Physician [place]) Completed 04/19/2024 HPV Vaccines Aged Out No longer eligi ble based on patient's age to complete this topic Meningococcal B Vaccine Aged Out No l onger eligible based on patient's age to complete this topic Meningococcal Vaccine Aged Out No danelle papi eligible based on patient's age to complete this topic Pneumococcal Vaccine: Pediatrics (0 to 5 Years) and At-Risk Patients (6 to 49 Years) Aged Out No longer eligible b ased on patient's age to complete this topic RSV Immunizations Under 20 Months Aged Out No longer eligible b ased on patient's age to complete this topic Procedures Procedure Name Priority Date/Time Associated Diagnosis Comments MRI GENERIC 09/13/2024 OUTSIDE CYTOPATH CERV/VAG INTERPRET (PAP) 07/07/2022 HEPATITIS C ANTIBODY Routine 12/10/2021 11:00 AM CDT Annual physical exam Encounter for medical examination to establish care General medical exam Encounter for hepatitis C screening test for low risk patient from Last 3 Months or Most Recently Relevant to Health Maintenance Results * MRI GENERIC (09/13/2024) Anatomical Region Laterality Modality Other 09/13/2024 [facility] Scanned SCANNING Final Resu lt * PAP SMEAR WITH HPV (07/07/2022) 07/07/2022 [facility] Scanned SCANNING Final Resu lt * HEPATITIS C ANTIBODY (12/10/2021 11:00 AM CDT) HEPATITIS C AB NON-REACTI VE NON-REACT JORDAN 12/11/2021 2:13 PM CDT [facility] Comment: ANTIBODIES TO HCV NOT DETECTED. DOES NOT EXCLUDE THE POSSIBILITY OF EXPOSURE TO HCV. 12/10/2021 11:0 0 AM CDT Suhail Ross MD LABORATORY Final Result [facility] [address] [place] [address], [id number] from Last 3 Months or Most Recently Relevant to Health Maintenance Insurance [address] Care Teams Bucket Hooker Relationship Specialty Start Date End Date Suhail Ross MD [address] [facility] [address] [place] [id number] PCP - General INTERNAL MEDICINE 12/10/21
--- NOTE | 2024-09-28 07:04 | WPDHPUPDATE1 ---
History and Physical Update Update Date/Time: 09/28/24 07:04 Patient seen and examined in pre-operative holding area. No interval change in medical history or symptoms. Patient recalls previous discussion of benefits and alternatives to procedure. Continues to desire to proceed with right volar wrist ganglion excision. Reviewed procedure, post-op expectations and risks including but not limited to bleeding, infection, injury to tendon/nerve/vessel, decreased hand function, stiffness, RSD, no change or worsening of symptoms, recurrence. I discussed the possible use of assistants and their participation in the case. Patient stated understanding and signed the consent form wishing to proceed.
--- NOTE | 2024-09-28 07:04 | W.PM.PROC2 ---
Procedure Note - Detailed Date of Procedure 09/28/24 Pre-op Diagnosis Ganglion Cyst right volar wrist Post-op Diagnosis Same Procedure Performed right volar wrist ganglion excision Surgeon Mich Wyatt MD Linseed Oil Order Filler lamar he pa-c Anesthesia MAC Description of Procedure INFORMED CONSENT: The patient was seen and examined and marked in the pre-op area.? The patient signed the consent form. PROCEDURE IN DETAIL:The patient taken back to OR on the stretcher in supine position. Time out performed with anesthesia, surgeon and staff agreeing on patient's name site and surgery to be performed SCDs were placed on the lower extremities and inflated. A tourniquet was placed on {right} upper extremity and antibiotics given IV After anesthesia administered sedation I injected {6}cc 1%lido with epi and 0.5% marcaine plain at the operative site The?{right upper extremity}?was prepped and draped in sterile fashion the??{right upper extremity} was? exsanguinated with Esmarch bandage proximal to the mass and tourniquet inflated to 250mmHg I proceeded with making a longitudinal incision over the right volar wrist mass skin and dermis with a 15 blade scalpel. Littler scissors were used to spread through subcutaneous tissue and brachial fascia. I made an incision in the antebrachial fascia and identified mass consistent with ganglion cyst in the space and I proceeded with circumferential dissection of this mass down to the volar wrist capsule. The radial artery was identified and protected throughout the procedure. I transected the ganglion stalk from the volar wrist capsule with bipolar cautery. I irrigated with normal saline. I repaired the capsular defect with 4-0 Vicryl suture. The tourniquet was let down and hemostasis was noted to be good with intact radial artery. 4-0 Vicryl was used for dermis and 4-0 Monocryl for subcuticular closure. A dressing of Dermabond, 4x4, blanco, and a volar splint was applied for patient safety, security, and comfort and secured with an neo bandage. The hand was warm and well perfused. The patient was then awaken from anesthesia and transferred to the recovery room in stable condition.? Complications - none EBL- 3cc Disposition - home in stable condition Lamar He PA-C was essential for positioning, retraction, closure and dressing placement [facility] [place] Surgery - Charge Forward: Surgery Billing ([id number] for lamar)
[2024-09-28 10:45] VITALS: BP 94/70; PULSE 69; RESP 16; TEMP 36.6; O2SAT 100
[2024-09-28 10:46] LABS: BEDSIDEPREGUCG Negative (Negative)
[2024-09-28] MEDS: LACTATED RINGERS 1,000 ML 30 ML IV CONT (10:55)
--- NOTE | 2024-09-28 11:26 | P.PNAN_ITS ---
Anes - Initial Pre Proc Eval Procedure: Operation Date: 09/28/24 12:15 Proposed Procedures p Excision of Right Wrist Volar Ganglion Cyst - Mich Wyatt MD Date/Time: 09/28/24 11:26 Surgeon: Mich Wyatt MD Pre Op Diagnosis: Ganglion Cyst Patient Data Age: 34 Gender: F Height: 1.68 m Weight: 53.8 kg Last Vital Signs Temp 36.6 C 09/28/24 10:45 Pulse 69 09/28/24 10:45 Resp 16 09/28/24 10:45 BP 94/70 L 09/28/24 10:45 Pulse Ox 100 09/28/24 10:45 O2 Del Method Room Air 09/28/24 10:45 Allergies Allergy/AdvReac Type Severity Reaction Status Date / Time Sulfa (Sulfonamide Allergy Unknown Unknown Verified 09/28/24 11:03 Antibiotics) Home Medications ?Medication ?Instructions ?Recorded ?Confirmed ?Type cholecalciferol (vitamin D3) 25 1,000 unit PO DAILY 02/14/19 09/28/24 History mcg (1,000 unit) capsule (Vitamin D3) spironolactone 100 mg tablet 100 mg PO DAILY 09/26/24 09/28/24 History tramadol 50 mg tablet 50 mg PO Q6H PRN pain #12 tabs 09/28/24 Rx Laboratory Tests 09/28/24 10:44 POC Urine HCG, Qual Negative (Negative) Patient hx anesthesia problems: none Family hx anesthesia problems: none Results Review: All pre-operative results and documents have been reviewed as part of the pre- operative evaluation. [facility] Past Medical History Medical History Vitamin D deficiency Surgical History Surgical History No pertinent past surgical history Family History Family History Mother Family history non-contributory Social History Social History Smoking status: Former smoker Tobacco type: cigarettes Alcohol intake: current Substance use: never Living arrangements: with family Gender identity (if verbalized by the patient): Female Spiritual care concerns: No Anes - Eval Final PreProcedure Day of Procedure 09/28/24 11:26 Patient weight: normal Heart: regular rate and rhythm Lungs: clear to auscultation Airway: Mallampati scale class 1 Neurological: alert and oriented Last oral intake: >/= 8 hours ASA classification: I Emergent: no Anesthetic plan: proceed Anesthesia type and monitoring: general GIVS and standard monitoring Results Review: All pre-operative results and documents have been reviewed as part of the pre- operative evaluation. Informed Consent: The patient's anesthetic plan and its attendant risks and benefits were discussed with the patient/family/POA. Questions were solicited and answers provided to the satisfaction of the patient/family/POA.
[2024-09-28] MEDS: ceFAZolin 2 GM/D5W 50 ML 2 GM/50 ML BAG IVPB (12:08)
[2024-09-28] MEDS: BUPivacaine HCL 0.5% 10 ML AMP 20 ML INFILTRATE (12:16)
[2024-09-28] MEDS: LIDO 1%/EPINEPHRINE 1:100,000 20 ML VIAL INFILTRATE (12:16)
--- NOTE | 2024-09-28 12:27 | S_PTH ---
PATIENT: Elida Hamlin LOC: [facility] U#:[id number] AGE/SX: 34/F ROOM: RE09/28/[address]: Mich Wyatt MD : 1990 BED: DIS: 09/28/2024 SPEC #: [id number] RECD: 09/28/24 13:31 STATUS: JAYDA REBo #: [id number] CLARISSA: 09/28/24 12:[address]: Mich Wyatt DEPT: [facility] Surgical RECD BY: Wallace Yadav ENTERED: 09/28/24 13:31 SP TYPE: Surgical OTHR DR: Suhail Ross, Tissues: A - Cyst Procedures: Hematoxylin and Eosin Stain Gross and Microscopic Level 4
[2024-09-28 12:34] VITALS: BP 102/57; PULSE 70; RESP 20
[2024-09-28 13:00] VITALS: BP 91/60; PULSE 57; RESP 20
[2024-09-28 13:30] VITALS: BP 102/64; PULSE 62; RESP 20
[2024-09-28 13:45] VITALS: BP 94/60; PULSE 55; RESP 20
== END 2024-09-28 13:54 | disposition home or self-care (01) ==
PROVIDERS: Anesthesiology; PCP Internal Medicine; Visit Provider Plastic Surgery
PROC: (CPT 25111; principal; 2024-09-28 12:15)
DX: M67.431 Ganglion, right wrist (principal); Z87.891 Personal history of nicotine dependence
CPT/HCPCS: 25111; 88305; J0690; J2004; J2250; J2371; J2704; J7120

== ENCOUNTER 2024-11-16 09:08 | Emergency (ER) | payer BC, SELFPAY ==
--- NOTE | 2024-11-16 09:12 | ED.FEMALEGU ---
HPI - Female Genitourinary General Chief complaint: Urogenital-Female Stated complaint: UTI SYMPTOMS Time Seen by Provider: 11/16/24 09:08 Source: patient Mode of arrival: ambulatory Limitations: no limitations History of Present Illness HPI Narrative: Elida is a 34 year old female patient presenting to the clinic today with complaints of possible UTI. She reports over the last 2 weeks she has had burning with urination, frequency, urgency, and bladder pain off and on. States that she has been busy needs appointment send back to school activities to be evaluated. Denies any fevers, chills, body aches, nausea, vomiting, back pain, or abdominal pain. History of interstitial cystitis and urinary tract infections. Patient has taken azo to treat her symptoms. Last menstrual period was 2 weeks ago. No concern for . No concern for STIs. Denies any vaginal discharge or odor. Related Data Home Medications ?Medication ?Instructions ?Recorded ?Confirmed ?Last Taken ?Type cholecalciferol (vitamin D3) 25 1,000 unit PO DAILY 02/14/19 11/16/24 09/25/24 History mcg (1,000 unit) capsule (Vitamin D3) spironolactone 100 mg tablet 100 mg PO DAILY 09/26/24 11/16/24 09/27/24 History testosterone enanthate 100 mg IM WEEKLY 11/16/24 11/16/24 Unknown History Allergies Allergy/AdvReac Type Severity Reaction Status Date / Time Sulfa (Sulfonamide Allergy Unknown Unknown Verified 11/16/24 09:14 Antibiotics) Review of Systems Review of Systems: Pertinent positives per HPI. Patient denies any fever, chills, rash, headache, visual changes, dizziness, cough, runny nose, sore throat, shortness of breath, chest pain, palpitations, nausea, vomiting, diarrhea, constipation, abdominal pain. PENDING SALE TO [facility] Past Medical History Medical History Vitamin D deficiency Surgical History Surgical History No pertinent past surgical history Family History Family History Mother Family history non-contributory Social History Social History (Reviewed 11/16/24 @ 09:30 by SHELLY Peralta Social History: Caffeine-daily Years smoked: 4 Smoking status: Former smoker Tobacco type: cigarettes Smoking end date: 09/26/12 Alcohol intake: current Drinks per week: 4 Substance use: never Substance use type: does not use Living arrangements: with family Gender identity (if verbalized by the patient): Female Spiritual care concerns: No Comments At the time of my signature, I reviewed and agree with the nursing past medical, surgical, social, and family history. There is no relevant family history pertinent to the patient complaint. Exam Narrative: General: Well-developed, well nourished, in no apparent distress. Head: Normocephalic, atraumatic. Cardio: Regular rate and rhythm, s1 and s2 normal, no murmur appreciated. Resp: Clear to auscultation bilaterally, no rhonchi, rales, wheezing or rubs. Abdomen: Soft, pliable, bowel sounds present in all quadrants, suprapubic tender to palpation, no organomegly, no CVAT tenderness. Course Course Emergency Course: Portions of this record may have been created with voice recognition software. Level of Care: Express Care Visit Vital Signs Vital signs: Vital Signs Temperature 36.3 C L 11/16/24 09:17 Pulse Rate 80 11/16/24 09:17 Respiratory Rate 16 11/16/24 09:17 Blood Pressure 104/74 11/16/24 09:17 Pulse Oximetry 99 11/16/24 09:17 Temperature 36.3 C L 11/16/24 09:17 Pulse Rate 80 11/16/24 09:17 Respiratory Rate 16 11/16/24 09:17 Blood Pressure 104/74 11/16/24 09:17 Pulse Oximetry 99 11/16/24 09:17 Vital signs reviewed MDM - Female Genitourinary MDM Narrative Medical decision making narrative: At the time of visit patient is resting comfortably on the exam table. Patient appears to be nontoxic. Complaints of possible UTI. She reports over the last 2 weeks she has had burning with urination, frequency, urgency, and bladder pain off and on. States that she has been busy needs appointment send back to school activities to be evaluated. Denies any fevers, chills, body aches, nausea, vomiting, back pain, or abdominal pain. History of interstitial cystitis and urinary tract infections. Last menstrual period was 2 weeks ago. No concern for . No concern for STIs. Denies any vaginal discharge or odor. Patient has taken azo to treat her symptoms. Will be unable to do urine dip is this will skew the results. Urine culture was ordered Plan: Patient is having UTI symptoms. Will send in prescription for cephalexin and send her urine for culture. Supportive measures were discussed with the patient and they voiced understanding discharge instructions and agrees to treatment plan. Return precautions reviewed Differential Diagnosis Differential diagnosis: Likely urinary tract infection and cystitis Discharge Plan Discharge Clinical Impression: UTI (urinary tract infection) Qualifiers: Urinary tract infection type: acute cystitis Hematuria presence: without hematuria Qualified Code(s): N30.00 - Acute cystitis without hematuria Patient Disposition: Home Condition: Stable Instructions: Antibiotic Form, Urinary Tract Infection in Women (ED) Additional Instructions: Take cephalexin as prescribed. We will send urine for culture. Increase fluids and stay well hydrated Wipe front to back. May use wet wipes. Avoid tub baths If sexually active- pee before and after intercourse. Wear cotton panties Avoid tight clothing up against the genitals Follow up with your PCP in 1 week if symptoms persist. Patient Language: Cook Islander Prescriptions: New cephalexin 500 mg capsule 500 mg PO Q12H 7 Days Qty: 14 0RF No Action testosterone enanthate 100 mg IM WEEKLY cholecalciferol (vitamin D3) [Vitamin D3] 1,000 unit Capsule 1,000 unit PO DAILY spironolactone 100 mg tablet 100 mg PO DAILY Patient Comments: For Acne Follow-up/Referrals: Vandana,MD Suhail [Primary Care Provider, Unknown] Time of Disposition: 09:27 Quality NIHSS Nursing Documentation ED NIHSS nursing documentation: reviewed/agree
[2024-11-16 09:17] VITALS: BP 104/74; PULSE 80; RESP 16; TEMP 36.3; O2SAT 99
== END 2024-11-16 09:30 | disposition home or self-care (01) ==
PROVIDERS: Emergency Provider Nurse Practitioner Family; PCP Internal Medicine
DX: N30.00 Acute cystitis without hematuria (principal); Z87.891 Personal history of nicotine dependence; E55.9 Vitamin D deficiency, unspecified
CPT/HCPCS: 87086; 99213; G0463